=== PATIENT | female | born 1980 | race African-American/Black ===

== ENCOUNTER 2018-10-10 19:05 | Emergency (ER) | payer BC ==
[~2018-10-10] VITALS: Ht 162.6 cm; Wt 108.0 kg
[~2018-10-10 19:05] MED LIST: IBUPROFEN 600600 M1 PO; PERCOCET 5-3251 EACH PO; ZOFRAN ODT4 MG PO
[2018-10-10] MEDS ORDERED: ACETAMINOPHEN-1 EAC1 PO (19:16)
[2018-10-10 19:26] LABS: URINE BILIRUBIN NEGATIVE (Negative); URINE BLOOD TRACE (Negative); URINE CLARITY CLEAR; URINE COLOR YELLOW; URINE GLUCOSE-RANDOM NEGATIVE (Negative); URINE KETONES NEGATIVE (Negative); URINE LEUKOCYTES-REFLEX NEGATIVE (Negative); URINE NITRITE-REFLEX NEGATIVE (Negative); URINE PROTEIN NEGATIVE (Negative); URINE SPECIFIC GRAVITY 1.025 (1.005-1.030); URINE UROBILINOGEN 0.2 E.U./dl (0.2-1.0)
[2018-10-10 19:31] LABS: ABSOLUTE BASOPHILS 0.1 thou/uL (0.0-0.2); ABSOLUTE EOSINOPHILS 0.3 thou/uL (0.0-0.7); ABSOLUTE LYMPHOCYTES 1.3 thou/uL (0.8-5.3); ABSOLUTE MONOCYTES 0.8 thou/uL (0.0-1.2); ABSOLUTE NEUTROPHILS 11.2 thou/uL (1.6-8.1); BASOPHILS 0.7 %; HEMATOCRIT 34.1 % (37.0-47.0); HEMOGLOBIN 10.7 gm/dL (12.0-15.0); LYMPHOCYTES 9.3 %; MCH 23.2 pg (26.0-34.0); MCHC 31.3 g/dL (28.0-37.0); MONOCYTES 5.9 %; NUCLEATED RBCS 0 /100WBC; PLATELET COUNT* 469 thou/uL (150-400); POLYS 82.1 %; RBC 4.61 mil/uL (4.20-5.00); RDW-CV 16.4 % (10.5-14.5); WBC 13.6 thou/uL (4.0-11.0)
[2018-10-10 20:05] LABS: CALCIUM 9.2 mg/dL (8.5-10.1); CREATININE 0.9 mg/dL (0.6-1.3); POTASSIUM 4.1 mmol/L (3.5-5.1)
[2018-10-10 20:10] LABS: ALBUMIN 3.5 g/dL (3.4-5.0); TOTAL BILIRUBIN 0.2 mg/dL (<0.1-1.0); TOTAL PROTEIN 7.2 g/dL (6.4-8.2)
[2018-10-10] MEDS ORDERED: AUGMENTIN 875-1 EACH PO (21:28)
[2018-10-10] MEDS ORDERED: FLAGYL500 M1 PO (21:28)
[2018-10-10] MEDS ORDERED: ZOFRAN4 MG PO (21:28)
[2018-10-10] MEDS ORDERED: PERCOCET 5-3251 EACH PO (21:30)
[2018-10-10 21:50] VITALS: BP 115/70
--- NOTE | 2018-10-11 11:11 | EKG ---
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: [place] : 1980 Requested By: Lien Sebastian Order Number: [id number] MD: Saman Anderson Measurements Intervals [place] Rate: 99 P: 60 MI: 153 QRS: 36 QRSD: 74 T: 16 QT: 331 QTc: 425 Interpretive Statements Sinus rhythm Probable left atrial enlargement Borderline T abnormalities, anterior leads Compared to ECG 09/13/2014 09:43:47 T-wave abnormality now present Electronically Signed On 10-11-2018 11:11:21 CDT by Saman Anderson [email or web address] <ELECTRONICALLY SIGNED> By: Saman Anderson MD, [facility] 10/11/18 1111 47 47 Saman Anderson MD, [facility] /EPI
== END 2018-10-10 21:51 | disposition home or self-care (01) ==
LOC: M.ERS 19:05
PROVIDERS: Nurse Practitioner Family
DX: K80.20 Calculus of gallbladder without cholecystitis without obstruction (principal); K80.50 Calculus of bile duct without cholangitis or cholecystitis without obstruction; Z88.5 Allergy status to narcotic agent

== ENCOUNTER 2018-10-30 07:59 | Observation (INO) | payer BC ==
[~2018-10-30] VITALS: Ht 162.6 cm; Wt 113.6 kg
--- NOTE | ~2018-10-30 | H ---
[address] [address] HISTORY AND PHYSICAL Name: RITA HIGH Room: [address] Jose Danielle#: [id number] Admission: 10/30/18 Attend Phys: Reina Olivas DO Discharge: 11/01/18 Date of : [birth year] Report #: [id number] THIS REPORT FOR: //name// Please refer to the History and Physical performed in the physician's office. By: 0643Medical Records Staff JOSE /MEREDITH
[~2018-10-30 07:59] MED LIST changes: +ACETAMINOPHEN-1 EAC1 PO; +AUGMENTIN 875-1 EACH PO; +FLAGYL500 M1 PO; +ZOFRAN4 MG PO
[2018-10-30 08:22] LABS: HEMATOCRIT 32.6 % (37.0-47.0); HEMOGLOBIN 10.4 gm/dL (12.0-15.0)
[2018-10-30 14:45] VITALS: BP 141/79
[2018-10-30 16:30] VITALS: BP 105/70
--- NOTE | 2018-10-30 17:39 | NUR ---
PATIENT ARRIVED FROM SURGERY THIS AFTERNOON. PATIENT SETTLED TO ROOM AND HISTORY, ASSESSMENT AND VITALS COMPLETED AND DOCUMENTED. PATIENT HAS HAD COMPLAINTS OF PAIN X 1 TREATED WITH MORPHINE. PATIENT TOLERATING CLEAR LIQUIDS THIS EVENING. PATIENT WILL BE NPO AFTER MISNIGHT FOR ERCP TOMORROW. PATIENT DENIES ANY NEEDS AT THIS TIME. FAMILY AT BEDSIDE. CALL [facility] WITHIN REACH.
[2018-10-30 19:50] VITALS: BP 114/70
[2018-10-31] VITALS: BP 103/59
[2018-10-31 04:00] VITALS: BP 118/69
--- NOTE | 2018-10-31 05:24 | NUR ---
PT ALERT AND ORIENTED. VSS ON RA. ASSESSMENT DOCUMENTED. MEDS GIVEN PER EMAR. PT NPO AFTER MN. PAINS MEDS GIVEN THIS SHIFT. RELIEVES NOTED. STANDBY ASSIST TO BATHROOM. PT CALLS OUT APPROPRIATELY. CALL LIGHT WITHIN REACH. HOURLY ROUNDINGS MADE. WILL CONTINUE TO MONITOR.
[2018-10-31 07:48] LABS: ABSOLUTE BASOPHILS 0.1 thou/uL (0.0-0.2); ABSOLUTE LYMPHOCYTES 1.5 thou/uL (0.8-5.3); ABSOLUTE MONOCYTES 0.8 thou/uL (0.0-1.2); ABSOLUTE NEUTROPHILS 5.9 thou/uL (1.6-8.1); BASOPHILS 1.1 %; EOSINOPHILS 0.3 %; HEMATOCRIT 31.2 % (37.0-47.0); HEMOGLOBIN 9.8 gm/dL (12.0-15.0); LYMPHOCYTES 18.1 %; MCHC 31.4 g/dL (28.0-37.0); MCV 76.2 fL (80.0-100.0); MONOCYTES 9.6 %; MPV 6.7 fl. (7.2-11.1); NUCLEATED RBCS 0 /100WBC; PLATELET COUNT* 482 thou/uL (150-400); POLYS 70.9 %; RDW-CV 16.8 % (10.5-14.5); WBC 8.4 thou/uL (4.0-11.0)
[2018-10-31 08:01] LABS: ALBUMIN 2.9 g/dL (3.4-5.0); CALCIUM 8.1 mg/dL (8.5-10.1); CREATININE 0.9 mg/dL (0.6-1.3); POTASSIUM 3.7 mmol/L (3.5-5.1); TOTAL BILIRUBIN 0.4 mg/dL (<0.1-1.0); TOTAL PROTEIN 6.5 g/dL (6.4-8.2)
[2018-10-31 08:30] VITALS: BP 128/77
[2018-10-31 11:58] VITALS: BP 118/69
--- NOTE | 2018-10-31 12:00 | NUR ---
TRANSFERRED OUT OF TO SURGERY W/ SURGICAL STAFF PRESENT. IN BED. NO ACUTE DISTRESS NOTED. ~TJRN
[2018-10-31 16:45] VITALS: BP 118/73
--- NOTE | 2018-10-31 16:45 | NUR ---
RETURN TO FROM SURGERY, NOTED EYES CLOSED, RESTING W/ NO S/S ACUTE DISTRESS. FAMILY MEMBERS PRESENT. REPORT REC'D FROM RESIDENTIAL SOLAR CONSULTANT. ~LIBRADO
--- NOTE | 2018-10-31 17:18 | CON ---
[address] [address] CONSULTATION Name: RITA HIGH Room: [address] M.R.#: [id number] Admission: 10/30/18 Attend Phys: Reina Olivas DO Discharge: Date of : 80 Report #: [id number] THIS REPORT FOR: //name// CC: Reina Conley MD DICTATED BY: Lida Dumont [facility] DATE OF SERVICE: 10/31/2018 PRIMARY CARE PHYSICIAN: Kirsten Conley MD REASON FOR CONSULTATION: Choledocholithiasis. HISTORY OF PRESENT ILLNESS: This is a 38-year-old female who presented to the emergency room earlier in the month of October with chief complaint of having right mid back and epigastric pain after she ate pizza. Surgery had saw her in the ER and it was noted on ultrasound that she had a borderline mild gallbladder wall thickening that was contracted and mild dilatation of her common bile duct and she was seen as an outpatient by Dr. Olivas who underwent a laparoscopic cholecystectomy yesterday in which it was noted during IOC after the gallbladder was removed that she had 4 stones and her gallbladder was dilated at 8 mm. The patient was still having pain last evening as well. Plans are for the patient to have an ERCP later on today. ALLERGIES: HYDROCODONE. MEDICATIONS FROM HOME: None. PAST MEDICAL HISTORY: History of sarcoidosis. PAST SURGICAL HISTORY: She has had a tubal ligation and lung biopsy. FAMILY HISTORY: Negative for any GI or female cancers. SOCIAL HISTORY: She lives with family. Quit smoking a year ago. Denies any alcohol or illegal drug use. REVIEW OF SYSTEMS: Twelve-point review of systems is essentially negative except what is mentioned in the HPI. PHYSICAL EXAMINATION: VITAL SIGNS: Temperature 36.9, pulse 77, respirations 17, blood pressure 118/69. HEART: [place] [address] CONSULTATION Name: RITA HIGH Room: [address] Jose Danielle#: [id number] Admission: 10/30/18 Attend Phys: Reina Olivas DO Discharge: Date of : 80 Report #: [id number] LUNGS: Clear. ABDOMEN: Soft, positive bowel sounds in all 4 quadrants with some epigastric and right upper quadrant tenderness noted to palpation. LABORATORY DATA: Hemoglobin is 9.8, white count is 8.4, platelets 482. GFR is 85. Lipase is 138. Total bilirubin 0.4, alkaline phosphatase 62, ALT 54 and AST is 43. IMPRESSION: 1. Choledocholithiasis. 2. Status post laparoscopic cholecystectomy, postop day #1. 3. Anemia. PLAN: 1. ERCP today. 2. Labs in a.m., CBC and CMP and lipase. 3. Further recommendations to be made after the procedure has been performed. Thank you for allowing us to participate in this patient's care. Please do not hesitate to call with any questions in regard to this consult. Agree with above assessment and plan by Lida Dumont <ELECTRONICALLY SIGNED> By: Brandon Short MD 10/31/18 1718 1115 [id number] Short MD /nt
[2018-10-31 19:30] VITALS: BP 120/71
[2018-11-01] VITALS: BP 99/53
[2018-11-01 04:00] VITALS: BP 93/52
--- NOTE | 2018-11-01 04:54 | NUR ---
PT ALERT AND ORIENTED. VSS ON RA. ASSESSMENT DOCUMENTED. PAIN MEDS GIVEN THIS SHIFT. PT IS STANDBY TO BATHROOM. STEADY GAIT. DRESSING TO ALEXUS CHANGED NEEDED. LW IV WITH NS @ 75ML/HR. POSSIBLE DC TO HOME TODAY. WILL CONTINUE TO MONITOR.
[2018-11-01 07:30] VITALS: BP 118/79
[2018-11-01] MEDS ORDERED: ZOFRAN ODT4 MG PO (07:58)
[2018-11-01 09:14] LABS: ABSOLUTE LYMPHOCYTES 1.7 thou/uL (0.8-5.3); ABSOLUTE MONOCYTES 0.8 thou/uL (0.0-1.2); ABSOLUTE NEUTROPHILS 5.6 thou/uL (1.6-8.1); BASOPHILS 0.3 %; EOSINOPHILS 0.5 %; HEMATOCRIT 30.4 % (37.0-47.0); HEMOGLOBIN 9.6 gm/dL (12.0-15.0); LYMPHOCYTES 21.2 %; MCH 23.9 pg (26.0-34.0); MCHC 31.5 g/dL (28.0-37.0); MCV 75.8 fL (80.0-100.0); MONOCYTES 9.4 %; MPV 7.3 fl. (7.2-11.1); NUCLEATED RBCS 0 /100WBC; PLATELET COUNT* 459 thou/uL (150-400); POLYS 68.6 %; RBC 4.01 mil/uL (4.20-5.00); RDW-CV 16.8 % (10.5-14.5); WBC 8.2 thou/uL (4.0-11.0)
[2018-11-01 09:27] LABS: ALBUMIN 2.9 g/dL (3.4-5.0); CALCIUM 7.9 mg/dL (8.5-10.1); CREATININE 0.8 mg/dL (0.6-1.3); POTASSIUM 3.4 mmol/L (3.5-5.1); TOTAL BILIRUBIN 0.2 mg/dL (<0.1-1.0); TOTAL PROTEIN 6.5 g/dL (6.4-8.2)
[2018-11-01 10:08] VITALS: BP 118/79
[2018-11-01] MEDS ORDERED: TRAMADOL 50 MG50 MG PO (10:20)
[2018-11-01 10:23] VITALS: BP 118/79
--- NOTE | 2018-11-01 16:06 | PATH ---
[address] [address] PATHOLOGY RPT PROCEDURE Name: RITA HIGH Room: [address] Shashi#: [id number] Admission: 10/30/18 Date of : [birth year] Discharge: 11/01/18 Report #: [id number] Path Case #: [id number] [facility] Accession Number: [id number] . 01 Material submitted: . gallbladder - GALLBLADDER . 01 Clinical history: . Gallstones . 02 Diagnosis: Gallbladder: - Chronic cholecystitis and cholelithiasis with benign sentinel lymph node. . (BE:mml; 10/31/2018) QLM/11/01/2018 . 02 Electronically signed: . Azael Carballo MD, Pathologist NPI- [id number] . 01 Gross description: . The specimen is received in formalin, labeled "Rita High, gallbladder", is an intact gallbladder measuring 8.2 cm in length and 2.7 cm in maximum diameter with a wrinkled pink-crane serosa. A 0.8 x 0.5 x 0.2 cm soft lymph node is identified in the region of the gallbladder neck. The cystic duct is patent. The gallbladder lumen contains scant dietz viscous bile and several yellow to green irregular calculi and its fragments measuring 2.2 x 2.0 x 0.5 cm in aggregate. The mucosa is dietz-brown and with no cholesterolosis. The wall is 0.2 cm in average thickness. Representatively submitted in A1. (SWS; 10/30/2018) SHS/ . 02 Microscopic: . . . 02 Pathologist provided ICD-10: K80.10 . 02 CPT . 794559 Specimen Comment: A courtesy copy of this report has been sent to Specimen Comment: [phone], . Specimen Comment: Report sent to and Performed at: [address] [place] [id number] [place] [address] PATHOLOGY RPT PROCEDURE Name: RITA HIGH Room: [address] Jose Danielle#: [id number] Admission: 10/30/18 Date of : 80 Discharge: 11/01/18 Report #: [id number] Path Case #: [id number] MD Tyrese Ramirez MD Phone: [phone] Performed at: [address] [facility] [place]OYA Marti [id number] MD Azael Carballo MD Phone: [phone]
--- NOTE | 2018-11-02 05:51 | OP ---
[address] [address] OPERATIVE REPORT Name: RITA HIGH Room: [address] Jose Danielle#: [id number] Admission: 10/30/18 Attend Phys: Reina Olivas DO Discharge: 11/01/18 Date of : 80 Report #: [id number] THIS REPORT FOR: //name// CC: Reina Conley DICTATED BY: Abe Garsia DO DATE OF SERVICE: 10/30/2018 DICTATING FOR: Reina Olivas DO PREOPERATIVE DIAGNOSES: Gallstones, cholecystitis, dilated CBD. POSTOPERATIVE DIAGNOSES: Cholelithiasis, cholecystitis, dilated biliary tree and choledocholithiasis. PRIMARY SURGEON: Reina Olivas DO. CO-SURGEON: Hi Wilkes DO, PGY4. MINE WEDGE SAWYER: Abe Garsia DO,PGY3. OPERATION PERFORMED: Laparoscopic cholecystectomy with intraoperative cholangiogram and surgeon interpretation of images. ANESTHESIA: General and local. ESTIMATED BLOOD LOSS: 10 mL. SPECIMEN REMOVED: Gallbladder. COMPLICATIONS: None. FINDINGS: Cholecystitis with chronic scarring of the gallbladder, severely dilated cystic duct. Cholangiogram showed multiple distal CBD stones and these were very large. Contrast did reach and flow into the duodenum. INDICATIONS FOR PROCEDURE: The patient is a pleasant 30-year-old female who presented to the office after recently seen in the ED on 10/10/2018 with a chief complaint of upper abdominal pain. The patient was found to have cholelithiasis and transaminitis. She followed up in the office. The patient also had a dilated common bile duct to 8 mm on abdominal ultrasound. She was seen in the office and recommended for laparoscopic cholecystectomy with intraoperative cholangiogram. Full discussion of procedure, alternatives, risks and possible complications discussed include but not limited to bleeding, infection, [place] [address] OPERATIVE REPORT Name: RITA HIGH Room: [address] Jose Danielle#: [id number] Admission: 10/30/18 Attend Phys: Reina Olivas DO Discharge: 11/01/18 Date of : 80 Report #: [id number] postoperative pain, scarring, hernia, conversion to open procedure, biloma, bile leak, injury to other underlying abdominal organs mainly stomach, liver, bowel and bile ducts. If bile duct injury were to occur transfer to a tertiary care facility for further evaluation and possible intervention with hepatobiliary specialist and anesthesia risks. The patient voiced understanding of these risks and agreed to proceed with surgery. DISPOSITION: Stable to PACU to floor for GI consult for ERCP. OPERATIVE TECHNIQUE: The patient was again seen and examined in preoperative holding. Fully informed written consent was obtained. Preoperative antibiotics were given, 2 grams Ancef. The patient was subsequently transferred to the operating room suite and placed on the operating table in supine position. At this time, anesthesia induced general anesthesia via endotracheal intubation and this was successful. SCDs were placed to bilateral lower extremity calves. Footboard was placed at the patient's feet. Left arm was placed in arm and right arm was tucked. All joints and extremities were padded and protected. Grounding pad was placed to the right lateral thigh. The patient was prepped and draped using standard sterile fashion. Time-out was performed prior to onset of procedure. We began by injecting 5 mL of 0.5% Marcaine inferior to the umbilicus 11 blade scalpel was then used to make a horizontal incision using open Montiel technique, we dissected down through subcutaneous tissue to reach the level of the fascia. Fascia was grasped with bilateral Kochers, elevated and scored. A finger sweep was performed. Hemostat was used to salazar peritoneum. Next, 2-0 Vicryl stay sutures were placed in the fascial edges and a 12 mm Karon trocar was placed into the abdomen. Abdomen was insufflated using low flow then high flow. A 0-degree laparoscopic camera was placed into the abdomen. There was noted to be no injury to underlying structures upon entry into the abdomen, although we did notice a fat containing ventral hernia superior to the umbilicus. Next the patient was placed in reverse Trendelenburg with left side down. An additional 5 mm trocar was placed in the epigastric region and two 5 mm trocars were placed in the right upper quadrant. Gallbladder was grasped with a locking wavy grasper and elevated. Adhesions and scar tissue were taken down, there was noted to be a very long gallbladder. Rosa's pouch was located. Dissection was carried out through the peritoneum using electrocautery and [place] graspers. There was noted to be very large dilated cystic duct. This was dissected out circumferentially and was evaluated to be coursing directly into the gallbladder. Next, the cystic artery was dissected out in exact same fashion as this artery was noted to be just posterior to the duct. The critical view of safety was obtained. Next, we proceeded with cholangiogram. A Davalos clamp was placed across the most distal aspect of the gallbladder and catheter advanced into the cystic duct. C-arm was then brought onto the field. Cholangiogram performed. There was noted to be a numerous amount of large gallstones in the distal CBD and contrast flowed freely into the duodenum. At this time, C-arm was removed from the patient's side as was the Davalos catheter and clamp. At this time, the cystic artery was clipped [facility] [address] [place] [address] OPERATIVE REPORT Name: RITA HIGH Room: [address] Jose Danielle#: [id number] Admission: 10/30/18 Attend Phys: Reina Olivas DO Discharge: 11/01/18 Date of : 80 Report #: [id number] twice distally and once proximally and transected using laparoscopic scissors. At this time, we then upsized the 5 mm epigastric trocar to a 12 mm trocar. At this time, an Endo-MIKHAIL 45 purple load was used to transect the cystic duct. Electrocautery was then used to remove the gallbladder from the liver bed. Towards the mid portion of the posterior aspect of the gallbladder wall, there was noted to be a duct of Luschka. This was dissected out and clipped proximally and distally in the middle and then transected using electrocautery. Once the gallbladder was fully removed from the liver bed, it was placed into an EndoCatch bag to the umbilical trocar. Right upper quadrant was then surveyed irrigated and suctioned using laparoscopic suction carbonating stone cleaner. Hemostasis has been achieved. We then reevaluated our clips and staple line noting no bile leak or hemorrhage. Intraoperative pictures were obtained. At this time, the 12 mm epigastric trocar was removed and closed with the PMI closure device using an 0 Vicryl suture. A 15-Greenlandic hubless ALEXUS drain was placed in the right upper quadrant for management and this was sutured in place with a 3-0 nylon through the most lateral 5-mm port site. Abdomen was then desufflated under direct visualization and the remaining 5 mm trocar was removed. Once the abdomen was fully desufflated, laparoscopic camera was removed as was the Karon trocar and the gallbladder was removed in the EndoCatch bag through the umbilical trocar site. At this time, fascia was then regrasped with bilateral Kochers and elevated two 0 Vicryl interrupted [id number] sutures were placed to close the fascia. Layered closure was then performed using a 3-0 Vicryl in the subcutaneous and dermal layers and the skin was closed using a running subcuticular 4-0 Monocryl. The remaining trocar sites were closed using interrupted 4-0 Monocryl. A 30 mL 0.5% Marcaine were used in total for local anesthetic. Abdomen was cleansed using wet and dry lap. Sterile dressings were then applied. Mastisol, Steri-Strips, 4 x 4's, and Tegaderms. The patient tolerated the procedure well and was extubated in the OR, transferred to PACU in stable condition and recovered from anesthesia. Plan to admit the patient to the surgical floor for a GI consult for evaluation of choledocholithiasis and ERCP. We have spoken with Dr. Short who agrees to consult and is planning for possible ERCP later this afternoon. <ELECTRONICALLY SIGNED> By: Reina Olivas DO 11/02/18 0551 1203 1300Cheri Olivas DO /nt
== END 2018-11-01 12:10 | disposition home or self-care (01) ==
LOC: M.SUR 07:59 → M.TBA 11:49 → M.ORTHSURG 13:54 → M.SUR 14:40 → M.ORTHSURG 11-01 12:10
PROVIDERS: Internal Medicine Gastroenterology; Nurse Practitioner Adult Health; Surgery; ADMIT Surgery
DX: K80.60 Calculus of gallbladder and bile duct with cholecystitis, unspecified, without obstruction (principal); D64.9 Anemia, unspecified; Z88.5 Allergy status to narcotic agent; Z79.899 Other long term (current) drug therapy